=== PATIENT | female | born 1990 | race Caucasian/White ===

== ENCOUNTER 2016-07-26 19:10 | Emergency (ER) | payer SELFPAY ==
[2016-07-26] MEDS ORDERED: ONDANSETRON HCL IV 4 MG/2 ML VIAL IVP ONE (19:37)
[2016-07-26] MEDS ORDERED: 0.9 % SODIUM CHLORIDE 1000ML 1,000 ML IV PRN (19:37)
--- NOTE | 2016-07-26 20:04 | Emergency Department Record ---
History of Present Illness - General Chief complaint: Vomiting Stated complaint: VOMITTING Time Seen by Provider: 07/26/16 19:57 Source: Patient Mode of Arrival: Ambulatory - History of Present Illness Initial comments: The patient was seen by the dentist yesterday for tooth pain in her right upper molar area. She was told it was inflamed, placed on clindamycin and informed that her tooth would be extracted once the inflamation resolves. Since starting the clindamycin she has been vomiting over 5 times, and thinks it is due to the clindamycin. She denies f,c, diarrhea, ap, ad now her tooth is no longer hurting. MD complaint: Nausea, Vomiting Onset/Timin -: Hour(s) Associated Abdominal Pain: No Severity scale (1-10): 5 Quality: Aching Improves with: None Worsens with: None Associated Symptoms: Headaches, Loss of appetite, Nausea/vomiting - Related Data Home Medications Medication Instructions Recorded Confirmed Last Taken Clindamycin HCl [Cleocin HCl] 300 mg PO QID 07/26/16 07/26/16 07/26/16 Previous Rx's Medication Instructions Recorded Azithromycin [Zithromax] 250 mg PO DAILY #6 tab 07/26/16 Ondansetron [Zofran Odt] 4 mg PO Q8H #7 tab.rapdis 07/26/16 Allergies Allergy/AdvReac Type Severity Reaction Status Date / Time Penicillins Allergy HIVES Verified 07/26/16 19:28 Travel Screening - Travel/Exposure Within Last 30 Days Have you traveled within the last 30 days?: No - Travel/Exposure Within Last Year Have you traveled outside the [place] in the last year?: No - Additonal Travel Details Have you been exposed to anyone with a communicable illness?: No - Travel Symptoms Symptom Screening: None Review of Systems Reviewed: No additional complaints except as noted below Constitutional: Reports: As per HPI. Denies: Chills, Fever, Malaise, Night sweats, Weakness, Weight change Eyes: Reports: As per HPI. Denies: Eye discharge, Eye pain, Photophobia, Vision change ENT: Reports: As per HPI. Denies: Congestion, Dental pain, Ear pain, Epistaxis , Hearing loss, Throat pain Respiratory: Reports: As per HPI. Denies: Cough, Dyspnea, Hemoptysis, Stridor, Wheezes Cardiovascular: Reports: As per HPI. Denies: Arrhythmia, Chest pain, Dyspnea on exertion, Edema, Murmurs, Orthopnea, Palpitations, Paroxysmal nocturnal dyspnea, Rheumatic Fever, Syncope Endocrine: Reports: As per HPI. Denies: Fatigue, Heat or cold intolerance, Polydipsia, Polyuria Gastrointestinal: Reports: As per HPI. Denies: Abdominal pain, Constipation, Diarrhea, Hematemesis, Hematochezia, Melena, Nausea, Vomiting Genitourinary: Reports: As per HPI. Denies: Abnormal menses, Discharge, Dyspareunia, Dysuria, Frequency, Hematuria, Incontinence, Retention, Urgency Musculoskeletal: Reports: As per HPI. Denies: Arthralgia, Back pain, Gout, Joint swelling, Myalgia, Neck pain Skin: Reports: As per HPI. Denies: Bruising, Change in color, Change in hair/ nails, Lesions, Pruritus, Rash Neurological: Reports: As per HPI. Denies: Abnormal gait, Confusion, Headache, Numbness, Paresthesias, Seizure, Tingling, Tremors, Vertigo, Weakness Psychiatric: Reports: As per HPI. Denies: Anxiety, Auditory hallucinations, Depression, Homicidal thoughts, Suicidal thoughts, Visual hallucinations Hematological/Lymphatic: Reports: As per HPI. Denies: Anemia, Blood Clots, Easy bleeding, Easy bruising, Swollen glands Past Medical History - SOCIAL HISTORY Smoking Status: Never smoker Alcohol Use: None Drug Use: None - RESPIRATORY Hx Respiratory Disorders: No - CARDIOVASCULAR Hx Cardio Disorders: No - NEURO Hx Neuro Disorders: No - GI Hx GI Disorders: No Hx Hiatal Hernia: Yes (umbilical hernia) - Hx Genitourinary Disorders: No - ENDOCRINE Hx Endocrine Disorders: No - MUSCULOSKELETAL Hx Musculoskeletal Disorders: No - PSYCH Hx Psych Problems: No - HEMATOLOGY/ONCOLOGY Hx Hematology/Oncology Disorders: No Family Medical History Any Significant Family History?: No Physical Exam - General General Appearance: Alert, Oriented x3, Cooperative, Mild distress - Head Head exam: Normal inspection - Eye Eye exam: Normal appearance, PERRL Pupils: Normal accommodation - ENT ENT exam: Normal exam, Mucous membranes moist, Normal external ear exam, Normal orophraynx, TM's normal bilaterally Ear exam: Normal external inspection. negative: External canal tenderness Nasal Exam: Normal inspection. negative: Discharge, Sinus tenderness Mouth exam: Normal external inspection, Tongue normal Teeth exam: Normal inspection, Dental caries (severe decay of tooth #3, down to gum line, no distant swelling or fluctuance) Throat exam: Normal inspection. negative: Tonsillar erythema, Tonsillar exudate - Neck Neck exam: Normal inspection, Full ROM. negative: Lymphadenopathy, Meningismus , Tenderness - Respiratory Respiratory exam: Normal lung sounds bilaterally. negative: Respiratory distress - Cardiovascular Cardiovascular Exam: Regular rate, Normal rhythm, Normal heart sounds - GI/Abdominal GI/Abdominal exam: Soft, Normal bowel sounds. negative: Tenderness - Rectal Rectal exam: Deferred - exam: Deferred - Extremities Extremities exam: Normal inspection, Full ROM, Normal capillary refill. negative: Tenderness - Back Back exam: Reports: Normal inspection, Full ROM. Denies: Muscle spasm, Rash noted, Tenderness - Neurological Neurological exam: Alert, Normal gait, Oriented X3, Reflexes normal - Psychiatric Psychiatric exam: Normal affect, Normal mood - Skin Skin exam: Dry, Intact, Normal color, Warm Course Vital Signs 07/26/16 19:18 Pulse Rate [ 83 Pulse Ox Probe] Respiratory 18 Rate Blood Pressure 135/96 [Left Arm] Pulse Ox 98 - Reevaluation(s) Reevaluation #1: nausea is resolved after zofran. 07/26/16 20:07 Reevaluation #2: Patient is feeling better. Labs and dc plan reviewed with patient. All questions answered. Patient to be on clear to full liquids tonight. 07/26/16 20:46 Medical Decision Making - Management Options MDM Management: No Additional Work-up Planned - Data Complexity MDM Data: Labs Ordered and/or Reviewed - Lab Data Result diagrams: 07/26/16 19:35 07/26/16 19:35 Disposition Disposition: Discharge Clinical Impression: Adverse reaction to antibiotic Qualifiers: Encounter type: initial encounter Qualified Code(s): T36.95XA - Adverse effect of unspecified systemic antibiotic, initial encounter Disposition: Home, Self-Care Instructions: Acute Nausea and Vomiting (ED), Acute Nausea and Vomiting, Decision Science Analyst (GEN), Adverse Drug Reaction (ED) Additional Instructions: Discontinue clindamycin as it is causing you to vomit. Begin zithromax as directed until gone. Take with food or an antacid. Follow up with dentist as previously instructed. zofran as directed if needed for nausea/vomiting. Prescriptions: Azithromycin [Zithromax] 250 mg PO DAILY #6 tab Ondansetron [Zofran Odt] 4 mg PO Q8H #7 tab.rapdis Forms: Patient Portal Access
[2016-07-26 20:12] LABS: BASO % 0.1 % (0-6); EOS % 0.3 % (0-6); GRAN % 72.7 % (47-80); HEMATOCRIT 44.3 % (35.0-47.0); HEMOGLOBIN 14.8 gm/dl (11.6-16.0); LYMPH % 16.7 % (16-45); MEAN CELL VOLUME 84.9 fl (81-97); MEAN CORPUSCULAR HEMOGLOBIN 28.4 pg (27-33); MEAN CORPUSCULAR HGB CONC 33.4 g/dl (32-36); MEAN PLATELET VOLUME 9.6 fl (7.4-10.4); MONO % 10.2 % (0-9); PLATELET COUNT 302 K/uL (130-400); RED BLOOD COUNT 5.22 M/uL (3.80-5.40); RED CELL DISTRIBUTION WIDTH 13.1 % (11.5-14.5); WHITE BLOOD COUNT W/O DIFF 11.1 K/uL (4.2-12.2)
[2016-07-26 20:26] LABS: ANION GAP 15.1 (7-16); BLOOD UREA NITROGEN 7 mg/dL (7-17); CARBON DIOXIDE 26.9 mmol/L (22-30); CREATININE 0.7 mg/dL (0.52-1.04); EST GLOMERULAR FILTRATION RATE > 60 ml/min; GLUCOSE,RANDOM 101 mg/dL (70-110)
[2016-07-26] MEDS ORDERED: ONDANSETRON 4 MG ODT TABLET SL ONE (20:45)
== END 2016-07-26 20:57 | disposition home or self-care (01) ==
LOC: MERGE 19:10 → ER 19:10
DX: T36.8X5A Adverse effect of other systemic antibiotics, initial encounter (principal); R11.2 Nausea with vomiting, unspecified; R51 Headache
CPT/HCPCS: 85025; 80048; 81025; J2405; 96361; 96374; 99284

== ENCOUNTER 2017-04-10 23:12 | Emergency (ER) | payer SELFPAY ==
--- NOTE | 2017-04-10 23:43 | Emergency Department Record ---
History of Present Illness - General Chief complaint: Cough Stated complaint: COUGH Time Seen by Provider: 04/10/17 23:14 Source: Patient Mode of Arrival: Ambulatory Limitations: No limitations - History of Present Illness Initial comments: pt has a yellow productive cough and for 2 wks and a toothache complaint: Tooth pain Onset/Timin -: Week(s) Location: Tooth # Severity: Mild Quality: Aching Consistency: Constant Improves with: None Worsens with: None Context- Dental: History of dental caries Associated Symptoms: Cough, Toothache - Related Data Previous Rx's Medication Instructions Recorded Benzonatate [Tessalon] 1 cap PO Q8H PRN #14 cap 04/10/17 Doxycycline Hyclate [Doxycycline] 100 mg PO BID #14 cap 04/10/17 Allergies Allergy/AdvReac Type Severity Reaction Status Date / Time Penicillins Allergy HIVES Verified 01/22/15 10:15 clindamycin AdvReac NAUSEA AND Verified 07/26/16 20:48 VOMITING Travel Screening - Travel/Exposure Within Last 30 Days Have you traveled within the last 30 days?: No Review of Systems Reviewed: No additional complaints except as noted below Constitutional: Reports: As per HPI. Denies: Chills, Fever, Malaise, Night sweats, Weakness, Weight change Eyes: Reports: As per HPI. Denies: Eye discharge, Eye pain, Photophobia, Vision change ENT: Reports: As per HPI. Denies: Congestion, Dental pain, Ear pain, Epistaxis , Hearing loss, Throat pain Respiratory: Reports: As per HPI. Denies: Cough, Dyspnea, Hemoptysis, Stridor, Wheezes Cardiovascular: Reports: As per HPI. Denies: Arrhythmia, Chest pain, Dyspnea on exertion, Edema, Murmurs, Orthopnea, Palpitations, Paroxysmal nocturnal dyspnea, Rheumatic Fever, Syncope Endocrine: Reports: As per HPI. Denies: Fatigue, Heat or cold intolerance, Polydipsia, Polyuria Gastrointestinal: Reports: As per HPI. Denies: Abdominal pain, Constipation, Diarrhea, Hematemesis, Hematochezia, Melena, Nausea, Vomiting Genitourinary: Reports: As per HPI. Denies: Abnormal menses, Discharge, Dyspareunia, Dysuria, Frequency, Hematuria, Incontinence, Retention, Urgency Musculoskeletal: Reports: As per HPI. Denies: Arthralgia, Back pain, Gout, Joint swelling, Myalgia, Neck pain Skin: Reports: As per HPI. Denies: Bruising, Change in color, Change in hair/ nails, Lesions, Pruritus, Rash Neurological: Reports: As per HPI. Denies: Abnormal gait, Confusion, Headache, Numbness, Paresthesias, Seizure, Tingling, Tremors, Vertigo, Weakness Psychiatric: Reports: As per HPI. Denies: Anxiety, Auditory hallucinations, Depression, Homicidal thoughts, Suicidal thoughts, Visual hallucinations Hematological/Lymphatic: Reports: As per HPI. Denies: Anemia, Blood Clots, Easy bleeding, Easy bruising, Swollen glands Past Medical History - SOCIAL HISTORY Smoking Status: Never smoker Alcohol Use: None Drug Use: None - RESPIRATORY Hx Respiratory Disorders: No - CARDIOVASCULAR Hx Cardio Disorders: No - NEURO Hx Neuro Disorders: No - GI Hx GI Disorders: No Hx Hiatal Hernia: Yes (umbilical hernia) - Hx Genitourinary Disorders: No - ENDOCRINE Hx Endocrine Disorders: No - MUSCULOSKELETAL Hx Musculoskeletal Disorders: No - PSYCH Hx Psych Problems: No - HEMATOLOGY/ONCOLOGY Hx Hematology/Oncology Disorders: No Family Medical History Any Significant Family History?: No Physical Exam - General General Appearance: Alert, Oriented x3, Cooperative, Mild distress - Head Head exam: Normal inspection - Eye Eye exam: Normal appearance, PERRL, EOMI Pupils: Normal accommodation - ENT ENT exam: Normal exam, Mucous membranes moist, Normal external ear exam, Normal orophraynx, TM's normal bilaterally Ear exam: Normal external inspection. negative: External canal tenderness Nasal Exam: Normal inspection. negative: Discharge, Sinus tenderness Mouth exam: Normal external inspection, Tongue normal Teeth exam: Dental caries, Dental tenderness # Throat exam: Normal inspection. negative: Tonsillar erythema, Tonsillar exudate - Neck Neck exam: Normal inspection, Full ROM. negative: Tenderness - Respiratory Respiratory exam: Normal lung sounds bilaterally. negative: Respiratory distress - Cardiovascular Cardiovascular Exam: Regular rate, Normal rhythm, Normal heart sounds - GI/Abdominal GI/Abdominal exam: Soft, Normal bowel sounds. negative: Tenderness - Rectal Rectal exam: Deferred - exam: Deferred - Extremities Extremities exam: Normal inspection, Full ROM, Normal capillary refill. negative: Tenderness - Back Back exam: Reports: Normal inspection, Full ROM. Denies: Muscle spasm, Rash noted, Tenderness - Neurological Neurological exam: Alert, CN II-XII intact, Normal gait, Oriented X3 - Psychiatric Psychiatric exam: Normal affect, Normal mood - Skin Skin exam: Dry, Intact, Normal color, Warm Course Vital Signs 04/10/17 23:18 Temperature 98.1 F Pulse Rate [ 78 Pulse Ox Probe] Respiratory 20 Rate Blood Pressure 141/102 [Left Arm] Pulse Ox 97 Disposition Disposition: Discharge Clinical Impression: Bronchitis, Toothache Disposition: Home, Self-Care Condition: (1) Good Instructions: Toothache (ED), Dental Abscess (ED), Acute Bronchitis (ED) Additional Instructions: follow up with family doctor and with dentist sia. return sooner if worse. motrin for pain Prescriptions: Benzonatate [Tessalon] 1 cap PO Q8H PRN #14 cap PRN Reason: Cough Doxycycline Hyclate [Doxycycline] 100 mg PO BID #14 cap Quality - Quality Measures Quality Measures: N/A - Blood Pressure Screening Does Patient Have Any of the Following: No Blood Pressure Classification: Hypertensive Reading Systolic Measurement: 141 Diastolic Measurement: 102 Screening for High Blood Pressure: < First Hypertensive BP, F/U Documented > [ G8950] First Hypertensive Follow-up Interventions: Follow-up with rescreen GT 1 day and LT 4 weeks.
[2017-04-10] MEDS: DOXYCYCLINE HYCLATE 100 MG CAPSULE PO ONE (23:52)
[2017-04-10] MEDS: BENZONATATE 100 MG CAPSULE PO ONE (23:52)
[2017-04-10] MEDS: IBUPROFEN 600 MG TABLET PO ONE (23:52)
== END 2017-04-11 00:01 | disposition home or self-care (01) ==
LOC: ER 23:12
DX: J20.9 Acute bronchitis, unspecified (principal); K08.89 Other specified disorders of teeth and supporting structures
CPT/HCPCS: 99282

== ENCOUNTER 2017-07-11 01:13 | Emergency (ER) | payer SELFPAY ==
[2017-07-11] MEDS ORDERED: IBUPROFEN 600 MG TABLET PO ONE (01:23)
--- NOTE | 2017-07-11 01:28 | Emergency Department Record ---
History of Present Illness - General Stated complaint: RT EARACHE Time Seen by Provider: 07/11/17 01:23 Source: Patient Mode of Arrival: Ambulatory Limitations: No limitations - History of Present Illness Initial comments: 26 yo female presents with 1.5 hours of right ear pain. No drainage. No fevers. She has had mild sore throat and congestion. She is otherwise normally very healthy. No vomiting or diarrhea. No rash. No cough. No abdominal pain. She is up to date on immunizations. MD complaint: Ear pain -: Hour(s) (1.5 hours) Location: R ear Severity: Moderate Quality: Aching Consistency: Constant Improves with: None Worsens with: None Context- Ear: Recent illness (mild congestion) Associated Symptoms: Rhinorrhea, Sore throat - Related Data Allergies Allergy/AdvReac Type Severity Reaction Status Date / Time Penicillins Allergy PT UNSURE Verified 07/11/17 01:30 OF REACTION clindamycin AdvReac PT UNSURE Verified 07/11/17 01:30 OF REACTION Review of Systems Constitutional: Denies: Chills, Fever, Malaise, Weakness Eyes: Denies: Eye discharge ENT: Reports: As per HPI, Congestion, Ear pain, Throat pain Respiratory: Reports: As per HPI, Cough. Denies: Dyspnea, Hemoptysis, Stridor, Wheezes Cardiovascular: Denies: Chest pain Endocrine: Denies: Fatigue Gastrointestinal: Denies: Abdominal pain, Diarrhea, Nausea, Vomiting Genitourinary: Denies: Dysuria, Urgency Musculoskeletal: Denies: Arthralgia, Back pain, Myalgia Skin: Denies: Bruising, Change in color, Rash Neurological: Denies: Headache Psychiatric: Denies: Anxiety Hematological/Lymphatic: Denies: Blood Clots, Easy bleeding, Easy bruising, Swollen glands Physical Exam - General General Appearance: Alert, Oriented x3, Cooperative, No acute distress Limitations: No limitations - Head Head exam: Normal inspection - Eye Eye exam: Normal appearance, PERRL. negative: Conjunctival injection - ENT ENT exam: Normal exam, Mucous membranes moist, Normal orophraynx, TM's normal bilaterally. negative: Mucous membranes dry Ear exam: Normal external inspection Nasal Exam: Normal inspection Mouth exam: Normal external inspection Teeth exam: Normal inspection Throat exam: Normal inspection. negative: Tonsillomegaly, R peritonsillar mass , L peritonsillar mass - Neck Neck exam: Normal inspection, Full ROM. negative: Lymphadenopathy, Meningismus , Tenderness - Respiratory Respiratory exam: Normal lung sounds bilaterally. negative: Respiratory distress - Cardiovascular Cardiovascular Exam: Regular rate, Normal rhythm, Normal heart sounds - GI/Abdominal GI/Abdominal exam: Soft - Rectal Rectal exam: Deferred - exam: Deferred - Extremities Extremities exam: Normal inspection, Full ROM, Normal capillary refill. negative: Tenderness - Back Back exam: Reports: Normal inspection, Full ROM. Denies: Muscle spasm, Rash noted, Tenderness - Neurological Neurological exam: Alert, Normal gait, Oriented X3 - Psychiatric Psychiatric exam: Normal affect, Normal mood - Skin Skin exam: Dry, Intact, Normal color, Warm Course - Reevaluation(s) Reevaluation #1: 07/11/17 01:26 No sign of acute infection at this time but she has been symptomatic for only 1.5 hours We discussed home treatment and reasons for a recheck Disposition Disposition: Discharge Clinical Impression: Otalgia of right ear Disposition: Home, Self-Care Condition: (1) Good Instructions: Earache (ED) Additional Instructions: Return if you have fever, other symptoms, vomiting, or any new concerns You will need the ear rechecked in the next 1-3 days if not resolved and sooner if worse. Time of Disposition: 01:28 Quality - Quality Measures Quality Measures: N/A - Blood Pressure Screening Does Patient Have Any of the Following: No Blood Pressure Classification: Hypertensive Reading Systolic Measurement: 152 Diastolic Measurement: 93 Screening for High Blood Pressure: < Pre-Hypertensive BP, F/U Documented > [ G8950] Pre-Hypertensive Follow-up Interventions: Referral to alternative/primary care provider.
== END 2017-07-11 02:15 | disposition home or self-care (01) ==
LOC: ER 01:13
DX: H92.01 Otalgia, right ear (principal)
CPT/HCPCS: 99282

== ENCOUNTER 2017-11-29 22:05 | Emergency (ER) | payer OTHER ==
[2017-11-29] MEDS ORDERED: AZITHROMYCIN 500 MG TABLET PO ONE (22:22)
--- NOTE | 2017-11-29 22:29 | Emergency Department Record ---
History of Present Illness - General Chief complaint: ENT Stated complaint: L EAR PAIN Time Seen by Provider: 11/29/17 22:22 Source: Patient Mode of Arrival: Ambulatory Limitations: No limitations - History of Present Illness Initial comments: 27 yo female presents to ED for evaluation of right upper dental pain symptoms radiating to her right ear that began approximately 36 hours ago. Patient denies fevers, chills, change in hearing, or ear trauma. Patient denies drainage from the ear as well. Patient does report that she called her dentist and has an appointment in 2 weeks. Patient also reports similar symptoms related to dental caries. Patient denies health problems at her baseline. MD complaint: Tooth pain Onset/Timin -: Days(s) Location: R ear, Tooth # 1 - Pain per patient Severity scale (1-10): 5 Consistency: Constant Improves with: NSAID Context- Dental: History of dental caries Associated Symptoms: Toothache - Related Data Previous Rx's Medication Instructions Recorded Azithromycin [Zithromax] 250 mg PO DAILY #7 tab 11/29/17 Allergies Allergy/AdvReac Type Severity Reaction Status Date / Time Penicillins Allergy HIVES Verified 01/22/15 10:15 clindamycin AdvReac NAUSEA AND Verified 07/26/16 20:48 VOMITING Travel Screening - Travel/Exposure Within Last 30 Days Have you traveled within the last 30 days?: No - Travel Symptoms Symptom Screening: None Review of Systems Constitutional: Denies: Chills, Fever, Malaise, Night sweats Eyes: Denies: Eye discharge, Eye pain ENT: Reports: Dental pain, Ear pain. Denies: Congestion, Epistaxis Respiratory: Denies: Cough, Dyspnea Cardiovascular: Denies: Chest pain, Dyspnea on exertion Endocrine: Denies: Fatigue, Heat or cold intolerance Gastrointestinal: Denies: Abdominal pain, Constipation, Nausea, Vomiting Genitourinary: Denies: Incontinence, Retention Musculoskeletal: Denies: Arthralgia, Back pain, Gout, Joint swelling Skin: Denies: Bruising, Change in color Neurological: Denies: Abnormal gait, Confusion, Headache, Seizure Psychiatric: Denies: Anxiety Hematological/Lymphatic: Denies: Anemia, Blood Clots Past Medical History - SOCIAL HISTORY Smoking Status: Never smoker - RESPIRATORY Hx Respiratory Disorders: No - CARDIOVASCULAR Hx Cardio Disorders: No - NEURO Hx Neuro Disorders: No - GI Hx GI Disorders: No - Hx Genitourinary Disorders: No - ENDOCRINE Hx Endocrine Disorders: No - MUSCULOSKELETAL Hx Musculoskeletal Disorders: No - PSYCH Hx Psych Problems: No - HEMATOLOGY/ONCOLOGY Hx Hematology/Oncology Disorders: No Family Medical History Any Significant Family History?: Yes Hx Diabetes: Father Hx HTN: Mother Physical Exam - General General Appearance: Alert, Oriented x3, Cooperative, Mild distress Limitations: No limitations - Head Head exam: Atraumatic, Normocephalic, Normal inspection Head exam detail: negative: Abrasion, Contusion, Pedraza's sign, General tenderness, Hematoma, Laceration - Eye Eye exam: Normal appearance. negative: Conjunctival injection, Periorbital swelling, Periorbital tenderness, Scleral icterus - ENT Ear exam: negative: Auricular hematoma, Auricular trauma Nasal Exam: negative: Active bleeding, Discharge, Dried blood, Foreign body Mouth exam: negative: Drooling, Laceration, Tongue elevation, Tongue normal Teeth exam: Dental caries, Dental tenderness #, Other (TTP over the patient's wisdom tooth upper right, no gingival abscess is present.) Throat exam: negative: Tonsillar erythema, Tonsillomegaly, R peritonsillar mass , L peritonsillar mass - Neck Neck exam: Normal inspection. negative: Meningismus, Tenderness - Respiratory Respiratory exam: Normal lung sounds bilaterally. negative: Rales, Respiratory distress, Rhonchi, Stridor - Cardiovascular Cardiovascular Exam: Regular rate, Normal rhythm, Normal heart sounds - GI/Abdominal GI/Abdominal exam: Soft. negative: Rebound, Rigid, Tenderness - Rectal Rectal exam: Deferred - exam: Deferred - Extremities Extremities exam: Normal inspection. negative: Calf tenderness, Pedal edema, Tenderness - Back Back exam: Denies: CVA tenderness (R), CVA tenderness (L) - Neurological Neurological exam: Alert, Normal gait, Oriented X3 - Psychiatric Psychiatric exam: Normal affect, Normal mood - Skin Skin exam: Normal color. negative: Abrasion Type of lesion: negative: abrasion Course Vital Signs 11/29/17 22:15 Temperature 98.0 F Pulse Rate 56 L Respiratory 16 Rate Blood Pressure 154/103 Pulse Ox 100 - Reevaluation(s) Reevaluation #1: 11/29/17 22:27 Patient reports similar symptoms related to dental caries Examination appears more consistent with pain related to wisdom tooth eruption Patient was informed that antibiotics may not improver her symptoms as a result. Patient was instructed to call her dentist to move up her appointment as well. Patient appears stable for discharge at this time. Disposition Disposition: Discharge Clinical Impression: Pain, dental Disposition: Home, Self-Care Condition: (2) Stable Instructions: Toothache (ED) Additional Instructions: Return to ED if your symptoms worsen or if you have any concerns. Zithromax as directed. Follow-up with your dentist in 1-3 days as directed. Prescriptions: Azithromycin [Zithromax] 250 mg PO DAILY #7 tab Time of Disposition: 22:30 Quality - Quality Measures Quality Measures: N/A - Blood Pressure Screening Does Patient Have Any of the Following: No Blood Pressure Classification: Hypertensive Reading Systolic Measurement: 154 Diastolic Measurement: 103 Screening for High Blood Pressure: < First Hypertensive BP, F/U Documented > [ G8950] First Hypertensive Follow-up Interventions: Referral to alternative/primary care provider.
== END 2017-11-29 22:38 | disposition home or self-care (01) ==
LOC: ER 22:05
DX: K08.89 Other specified disorders of teeth and supporting structures (principal); H92.02 Otalgia, left ear
CPT/HCPCS: 99282

== ENCOUNTER 2019-05-13 21:13 | Emergency (ER) | payer MEDICAID, OTHER ==
--- NOTE | 2019-05-13 21:17 | Emergency Department Record ---
History of Present Illness - General Stated complaint: SORE THROAT Time Seen by Provider: 05/13/19 21:15 Source: Patient Mode of Arrival: Ambulatory Limitations: No limitations - History of Present Illness Initial comments: 28 yo female presents with a sore throat. She reports a mild runny nose initially. She developed a sore throat the last 24 hours. No voice changes. She did notice a swollen gland on the left. Multiple people at work with strep currently. No other current symptoms. No nausea, vomiting or diarrhea. -: Days(s) Location: Throat Severity: Moderate Quality: Aching Consistency: Constant Improves with: None Worsens with: Swallowing Context-Epistaxis: Other Context- Dental: Other Associated Symptoms: Sore throat - Related Data Previous Rx's Medication Instructions Recorded Azithromycin [Zithromax] 250 mg PO DAILY #7 tab 11/29/17 Cephalexin [Keflex] 500 mg PO TID #30 cap 05/13/19 Allergies Allergy/AdvReac Type Severity Reaction Status Date / Time Penicillins Allergy HIVES Verified 01/22/15 10:15 clindamycin AdvReac NAUSEA AND Verified 07/26/16 20:48 VOMITING Review of Systems Constitutional: Denies: Chills Eyes: Denies: Eye discharge ENT: Reports: Congestion, Throat pain. Denies: Ear pain Respiratory: Denies: Cough Cardiovascular: Denies: Chest pain, Palpitations, Syncope Endocrine: Denies: Fatigue Gastrointestinal: Denies: Abdominal pain, Diarrhea, Nausea, Vomiting Genitourinary: Denies: Dysuria, Urgency Musculoskeletal: Denies: Arthralgia, Back pain, Myalgia Skin: Denies: Bruising, Change in color, Rash Neurological: Denies: Headache Psychiatric: Denies: Anxiety Hematological/Lymphatic: Denies: Easy bleeding, Easy bruising Past Medical History - SOCIAL HISTORY Smoking Status: Never smoker - RESPIRATORY Hx Respiratory Disorders: No - CARDIOVASCULAR Hx Cardio Disorders: No - NEURO Hx Neuro Disorders: No - GI Hx GI Disorders: No - Hx Genitourinary Disorders: No - ENDOCRINE Hx Endocrine Disorders: No - MUSCULOSKELETAL Hx Musculoskeletal Disorders: No - PSYCH Hx Psych Problems: No - HEMATOLOGY/ONCOLOGY Hx Hematology/Oncology Disorders: No Family Medical History Hx Diabetes: Father Hx HTN: Mother Physical Exam - General General Appearance: Alert, Oriented x3, Cooperative, No acute distress, Other (Well appearing, clear voice) Limitations: No limitations - Head Head exam: Atraumatic, Normal inspection - Eye Eye exam: Normal appearance, PERRL. negative: Conjunctival injection, Scleral icterus - ENT ENT exam: Normal exam, Mucous membranes moist, TM's normal bilaterally. negative: Mucous membranes dry Ear exam: Normal external inspection Nasal Exam: Normal inspection Mouth exam: Normal external inspection, Tongue normal. negative: Drooling, Muffled voice, Tongue elevation, Trismus Teeth exam: Normal inspection Throat exam: Tonsillar erythema, Tonsillomegaly (Left side), Tonsillar exudate (scant on L, right is normal). negative: R peritonsillar mass, L peritonsillar mass - Neck Neck exam: Normal inspection, Full ROM, Lymphadenopathy (left), Tenderness (left). negative: Meningismus - Respiratory Respiratory exam: Normal lung sounds bilaterally. negative: Accessory muscle use, Decreased breath sounds, Prolonged expiratory, Rhonchi, Stridor, Wheezes - Cardiovascular Cardiovascular Exam: Regular rate, Normal rhythm, Normal heart sounds - Rectal Rectal exam: Deferred - exam: Deferred - Extremities Extremities exam: Normal inspection - Neurological Neurological exam: Alert, Oriented X3 - Psychiatric Psychiatric exam: Normal affect, Normal mood - Skin Skin exam: Dry, Intact, Normal color, Warm Disposition Disposition: Discharge Clinical Impression: Acute bacterial tonsillitis Disposition: Home, Self-Care Condition: (1) Good Instructions: Tonsillitis (ED) Additional Instructions: Review this ER visit and the tests performed with your family doctor Call your doctor for the next available follow up appointment Return to the ER for a recheck immediately if worse, any new concerns or questions Take the prescriptions provided as directed Prescriptions: Cephalexin [Keflex] 500 mg PO TID #30 cap Time of Disposition: 21:27 Quality - Quality Measures Quality Measures: N/A - Blood Pressure Screening Does Patient Have Any of the Following: No Blood Pressure Classification: Hypertensive Reading Systolic Measurement: 165 Diastolic Measurement: 107 Screening for High Blood Pressure: < Pre-Hypertensive BP, F/U Documented > [[id number]] Pre-Hypertensive Follow-up Interventions: Referral to alternative/primary care provider.
[2019-05-13] MEDS: CEPHALEXIN 500 MG CAPSULE PO STA (21:51)
== END 2019-05-13 21:54 | disposition home or self-care (01) ==
LOC: ER 21:13
DX: J03.90 Acute tonsillitis, unspecified (principal)
CPT/HCPCS: 87880; 99283